=== PATIENT | female | born 1965 | race Caucasian/White ===

== ENCOUNTER 2016-08-19 15:32 | Emergency (ER) | payer MEDICAID, OTHER ==
[~2016-08-19] VITALS: Ht 152.4 cm; Wt 70.0 kg
[~2016-08-19 15:32] MED LIST: ATEN50TA PO; ATOR10TA23 PO; IBUP800T25 PO; LISI10TA2 PO; OMEP20CA9 PO
[2016-08-19 15:53] VITALS: Ht 152.4 cm; Wt 70.0 kg
[2016-08-19] MEDS ORDERED: SOD CHLORIDE 0.9% 1,000 ML IV STA (19:40)
[2016-08-19] MEDS ORDERED: ALBUTEROL 0.5% (NEB) 2.5 MG/0.5 ML AMP INH STA (19:40)
[2016-08-19] MEDS ORDERED: IBUPROFEN 600 MG TAB PO ONE (20:00)
[2016-08-19 20:19] LABS: ADD SCAN DIFF NO
[2016-08-19 20:21] LABS: BASOPHILS % 0.2 % (0.0-2.0); HEMATOCRIT 41.3 % (37.0-47.0); HEMOGLOBIN 14.3 g/dl (12.0-16.0); LYMPHOCYTES # 1.3 10^3/ul (0.8-2.9); LYMPHOCYTES % 28.6 % (15.0-51.0); MEAN CORPUSCULAR HEMOGLOBIN 29.9 pg (29.0-33.0); MEAN CORPUSCULAR HGB CONC 34.6 g/dl (32.0-37.0); MEAN CORPUSCULAR VOLUME 86.4 fl (82.0-101.0); MEAN PLATELET VOLUME 9.6 fl (7.4-10.4); MONOCYTE # 0.6 10^3/ul (0.3-0.9); MONOCYTES % 12.5 % (0.0-11.0); NEUTROPHIL # 2.6 10^3/ul (1.6-7.5); NEUTROPHILS % 58.5 % (39.0-77.0); PLATELET COUNT 184 10^3/UL (140-415); RED BLOOD COUNT 4.78 10^6/ul (4.20-5.40); RED CELL DISTRIBUTION WIDTH 13.8 % (11.5-14.5); WHITE BLOOD COUNT 4.4 10^3/ul (4.8-10.8)
[2016-08-19 20:36] LABS: ALANINE AMINOTRANSFERASE 44 IU/L (13-69); ALBUMIN 4.4 g/dl (3.3-4.9); ALBUMIN/GLOBULIN RATIO 1.12; ALKALINE PHOSPHATASE 174 IU/L (42-121); ANION GAP 18 (8-16); ASPARTATE AMINO TRANSFERASE 41 IU/L (15-46); BILIRUBIN,INDIRECT 0.3 mg/dl (0-1.1); BILIRUBIN,TOTAL 0.3 mg/dl (0.2-1.3); BLOOD UREA NITROGEN 8 mg/dl (7-20); CARBON DIOXIDE 25 mmol/L (21-31); CHLORIDE 104 mmol/L (97-110); CREATININE 0.52 mg/dl (0.44-1.00); GLUCOSE 110 mg/dl (70-220); POTASSIUM 3.5 mmol/L (3.5-5.1); SODIUM 143 mmol/L (135-144); TOTAL PROTEIN 8.3 g/dl (6.1-8.1)
[2016-08-19] MEDS ORDERED: ALBU8.5H3 INH (20:38)
[2016-08-19] MEDS ORDERED: AZIT500T5 PO (20:38)
[2016-08-19] MEDS ORDERED: IBUP-1542 PO (20:38)
--- NOTE | 2016-08-19 20:42 | ERD ---
ER Documentation Chief Complaint Date/Time DATE: 08/19/16 TIME: 20:40 Chief Complaint HTN, COUGH X4 DAYS. DID NOT TAKE HER HTN MEDS TODAY. HPI 50-year-old woman presents with cough, congestion, sore throat, elevated blood pressure 4 days. She denies history of asthma although she states she has had "bronchitis" in the past and has benefited from albuterol pump in the past. She denies calf or leg swelling, no chest pain, no vomiting or diarrhea, no dysuria, no headache or blurry vision. ROS All systems reviewed and are negative except as per history of present illness. Medications Home Meds Active Scripts Ibuprofen* (Ibuprofen*) 600 Mg Tablet, 600 MG PO Q8 for PAIN AND/OR INFLAMMATION , #30 TAB Prov:BARB CHRISTOPHER MD 08/19/16 Azithromycin* (Azithromycin*) 500 Mg Tablet, 500 MG PO DAILY for 5 Days, TAB Prov:BARB CHRISTOPHER MD 08/19/16 Albuterol Sulfate* (Proair HFA*) 8.5 Gm Hfa.aer.ad, 2 PUFF INH Q6H Y for COUGH, #1 INHALER Prov:BARB CHRISTOPHER MD 08/19/16 Omeprazole* (Prilosec*) 20 Mg Capsule.dr, 20 MG PO DAILY for 30 Days, CAP Prov:ALFRED JOSEPH PA-C 01/04/15 Ibuprofen* (Ibuprofen*) 800 Mg Tab, 800 MG PO Q6H Y for PAIN for 30 Days, TAB Prov:ALFRED JOSEPH PA-C 01/04/15 Reported Medications Lisinopril* (Lisinopril*) 10 Mg Tablet, 10 MG PO DAILY 07/24/12 Atorvastatin (Lipitor) 10 Mg Tablet, 10 MG PO HS 07/24/12 Atenolol* (Atenolol*) 50 Mg Tablet, 50 MG PO DAILY 07/24/12 Allergies Allergies: Coded Allergies: No Known Allergy (Unverified , 04/23/14) PMhx/Soc Hypertension, hypercholesterolemia, gastritis, obesity History of Surgery: Yes () Anesthesia Reaction: No Hx Neurological Disorder: No Hx Respiratory Disorders: No Hx Cardiac Disorders: Yes (HTN, high cholesterol) Hx Psychiatric Problems: No Hx Miscellaneous Medical Probl: No Hx Alcohol Use: No Hx Substance Use: No Hx Tobacco Use: No Smoking Status: Never smoker FmHx Family History: No diabetes Physical Exam Vitals Vital Signs Date Time Temp Pulse Resp B/P Pulse Ox O2 Delivery O2 Flow Rate FiO2 08/19/16 19:57 96 20 98 21 08/19/16 19:47 101 24 165/78 99 Room Air 08/19/16 15:53 99.9 107 16 200/93 96 Physical Exam GENERAL: Well-developed, well-nourished, appears dehydrated, febrile HEENT: Moist mucous membranes, pink conjunctiva, no cervical spine tenderness or step-off deformities, no goiter, no jaundice or icterus, extraocular movements intact without pain. No submandibular induration, and no pharyngeal erythema NEURO: Alert and oriented 3, cranial nerves II through XII intact bilaterally, pupils equal round reactive to light, no focal deficits or facial asymmetry, sensation intact distally Strength 5/5 in upper and lower extremities bilaterally CARDIAC: Tachycardic and regular, no murmurs rubs or gallops LUNGS: Clear bilaterally no wheezing crackles or stridor ABDOMEN: Soft nontender, no guarding, no rigidity, no rebound, no psoas sign no obturator sign. Normoactive bowel sounds SKIN: Warm and dry to touch, no abrasions, contusions, or hematomas, no lacerations, no ecchymosis, no target lesions, and without ulcers EXTREMITIES: No clubbing cyanosis or edema, calves are bilaterally symmetrical, no Homans sign, no popliteal cord sign. Distal pulses equal and bilateral PSYCH: Normal affect without agitation or irritability Result Diagram: 08/19/16199908/19/161999 Results 24 hrs Laboratory Tests Test 08/19/16 20:00 White Blood Count 4.410^3/ul Red Blood Count 4.7810^6/ul Hemoglobin 14.3g/dl Hematocrit 41.3% Mean Corpuscular Volume 86.4fl Mean Corpuscular Hemoglobin 29.9pg Mean Corpuscular Hemoglobin Concent 34.6g/dl Red Cell Distribution Width 13.8% Platelet Count 02777^3/UL Mean Platelet Volume 9.6fl Neutrophils % 58.5% Lymphocytes % 28.6% Monocytes % 12.5% Eosinophils % 0.0% Basophils % 0.2% Nucleated Red Blood Cells % 0.0/100WBC Neutrophils # 2.610^3/ul Lymphocytes # 1.310^3/ul Monocytes # 0.610^3/ul Eosinophils # 0.010^3/ul Basophils # 0.010^3/ul Nucleated Red Blood Cells # 0.010^3/ul Sodium Level 143mmol/L Potassium Level 3.5mmol/L Chloride Level 104mmol/L Carbon Dioxide Level 25mmol/L Anion Gap 18 Blood Urea Nitrogen 8mg/dl Creatinine 0.52mg/dl Glucose Level 110mg/dl Calcium Level 9.0mg/dl Total Bilirubin 0.3mg/dl Direct Bilirubin 0.00mg/dl Indirect Bilirubin 0.3mg/dl Aspartate Amino Transf (AST/SGOT) 41IU/L Alanine Aminotransferase (ALT/SGPT) 44IU/L Alkaline Phosphatase 174IU/L Troponin I < 0.012ng/ml Total Protein 8.3g/dl Albumin 4.4g/dl Globulin 3.90g/dl Albumin/Globulin Ratio 1.12 Lipase 57U/L Current Medications Medications (Trade) Dose Ordered Sig/Ofelia Route PRN Reason Start Time Stop Time Status Last Admin Dose Admin Ibuprofen (Motrin) 600 mg ONCE ONCE PO 08/19/16 20:00 08/19/16 20:01 DC 08/19/16 20:10 Albuterol 5 mg 5 mg ONCE STAT INH 08/19/16 19:40 08/19/16 19:49 DC 08/19/16 19:57 Sodium Chloride (NS) 1,000 ml @ 1,000 mls/hr Q1H STAT IV 08/19/16 19:40 08/19/16 20:39 DC 08/19/16 20:10 Clonidine (Catapres) 0.1 mg ONCE ONCE PO 08/19/16 20:00 08/19/16 20:01 DC 08/19/16 20:10 Procedures/MDM IV line was established patient was placed on spanish speaking babysitter rhythm strip revealed a sinus tachycardia at about 110 bpm with upright P and T waves. Patient had a low-grade fever. Blood cultures have been ordered results are pending I will follow-up. One AP view of the chest performed, read by me reveals no acute infiltrates, normal mediastinum, sharp costophrenic and cardiac borders, no air under the diaphragm. Otherwise unremarkable chest x-ray. EKG performed, read by me revealed a sinus tachycardia at 104 bpm, normal axis, narrow QRS complex, no concerning ST elevations or depressions noted. I administered 1 L normal saline intravenously, clonidine 0.1 mg p.o. for hypertension, albuterol 5 mg via nebulizer for cough, and ibuprofen 600 mg p.o. with good effect. CBC was unremarkable, electrolytes normal, liver function tests normal, troponin was negative. Urine specimen was lost by lab, and patient and her family members did not want to wait any longer for repeat testing. Influenza AB swabs were negative. Patient's symptoms improved as did her blood pressure she will be discharged for outpatient management and with my recommendation for follow-up with her PMD. Differential diagnoses considered, included but not limited to acute coronary syndrome, pulmonary embolism, aortic dissection, abdominal aortic aneurysm, sepsis, stroke, meningitis, encephalitis, pneumonia, appendicitis, cholecystitis , bowel obstruction, pyelonephritis, nephrolithiasis, cystitis, as well as metabolic, hematologic, and electrolyte abnormalities. As well as abscess, cellulitis, fractures, and dislocations. Patient feels much better at this time, and vital signs are normal, symptoms have improved. I did give strict instructions to return to the ED if symptoms continue or worsen, patient will otherwise follow-up with primary care physician. Patient understood instructions and agreed to plan. Departure Diagnosis: Primary Impression: Acute bronchitis Bronchitis organism: unspecified organism Qualified Code: J20.9 - Acute bronchitis, unspecified organism Additional Impression: Hypertensive urgency Condition: Good Patient Instructions: Bronchitis With Wheezing (Adult) BARB CHRISTOPHER MD Aug 19, 2016 20:41
[2016-08-19 20:47] LABS: TROPONIN-I < 0.012 ng/ml (0.00-0.12)
--- NOTE | 2016-08-19 21:11 | RADRPT ---
PROCEDURE: XR Chest. CLINICAL INDICATION: Shortness of breath. TECHNIQUE: Single frontal chest x-ray. COMPARISON: 11/22/2013 FINDINGS: Heart is mildly enlarged.. There is no CHF.. Mild bibasilar atelectasis.. There is no pleural effu jadyn. There is no pneumothorax. The osseous structures are unremarkable. IMPRESSION: Cardiomegaly. No CHF. Mild bibasilar atelectasis. RPTAT: [facility] .Travis Wagoner MD, Date Time Electronically viewed and signed by .Travis Wagoner MD, on 08/19/2016 21:10 .K/
[2016-08-19 22:16] VITALS: BP 141/64; PULSE 91; RESP 18
== END 2016-08-19 22:17 | disposition home or self-care (01) ==
LOC: E/R 15:32 → EDUNIT# 15:32 → E/R 22:17
DX: J20.9 Acute bronchitis, unspecified (principal); I16.0 Hypertensive urgency; R40.2142 Coma scale, eyes open, spontaneous, at arrival to emergency department; R40.2252 Coma scale, best verbal response, oriented, at arrival to emergency department; R40.2362 Coma scale, best motor response, obeys commands, at arrival to emergency department; I10 Essential (primary) hypertension
CPT/HCPCS: 36415; 71010; 80053; 83690; 84484; 85025; 87400; 93005; 94664; J7030; Z7502; Z7610

== ENCOUNTER 2018-05-19 12:39 | Emergency (ER) | payer MEDICAID ==
[~2018-05-19] VITALS: Wt 72.3 kg
[~2018-05-19 12:39] MED LIST changes: +ALBU8.5H8 INH; +AZIT500T5 PO; +IBUP-1542 PO; +IBUP-1545 PO; -IBUP800T25 PO
[2018-05-19] MEDS ORDERED: ACET325T33 PO (13:53)
[2018-05-19] MEDS ORDERED: OSEL75CA23 PO (13:53)
[2018-05-19] MEDS ORDERED: ACETAMINOPHEN 325 MG TAB PO ONE (14:00)
[2018-05-19] MEDS ORDERED: ASPI-817 PO (14:07)
[2018-05-19 14:52] VITALS: BP 148/58; PULSE 79; RESP 18
--- NOTE | 2018-05-19 17:16 | ERD ---
ER Documentation Chief Complaint Chief Complaint bib self, cc: fever since last night, body aches x 1 day HPI Patient is a 52-year-old female with hypertension who presents with fever. She describes a headache and feels cold all over. She said that the symptoms started on Saturday. She is taking her blood pressure medications. She has sick contacts at home with similar type symptoms. She did not get her flu shot this year. Upon review of old medical records this is the patient's seventh visit to the ER since 2012. She does not know the name of her primary doctor. ROS All systems reviewed and are negative except as per history of present illness. Medications Home Meds Active Scripts Acetaminophen* (Tylenol*) 325 Mg Tablet, 2 TAB PO Q8 PRN for PAIN AND OR ELEVA PAULA TEMP, #20 TAB Prov:CANDIDO SALMERON MD 05/19/18 Oseltamivir Phosphate* (Tamiflu*) 75 Mg Capsule, 75 MG PO BID for 5 Days, CAP Prov:CANDIDO SALMERON MD 05/19/18 Ibuprofen* (Ibuprofen*) 600 Mg Tablet, 600 MG PO Q8 for PAIN AND/OR INFLAMMATION, #30 TAB Prov:BARB CHRISTOPHER MD 08/19/16 Reported Medications Aspirin* (Aspirin* EC) 81 Mg Tablet., 81 MG PO DAILY, TAB 05/19/18 Atenolol* (Atenolol*) 50 Mg Tablet, 50 MG PO DAILY 07/24/12 Discontinued Reported Medications Lisinopril* (Lisinopril*) 10 Mg Tablet, 10 MG PO DAILY 07/24/12 Atorvastatin (Lipitor) 10 Mg Tablet, 10 MG PO HS 07/24/12 Discontinued Scripts Azithromycin* (Azithromycin*) 500 Mg Tablet, 500 MG PO DAILY for 5 Days, TAB Prov:BARB CHRISTOPHER MD 08/19/16 Albuterol Sulfate* (Proair HFA*) 8.5 Gm Hfa.aer.ad, 2 PUFF INH Q6H PRN for COUGH, #1 INHALER Prov:BARB CHRISTOPHER MD 08/19/16 Omeprazole* (Prilosec*) 20 Mg Capsule., 20 MG PO DAILY for 30 Days, CAP Prov:ALFRED JOSEPH PA-C 01/04/15 Ibuprofen* (Ibuprofen*) 800 Mg Tab, 800 MG PO Q6H PRN for PAIN for 30 Days, TAB Prov:INGRIDPareshALFRED Jiménez PA-C 01/04/15 Allergies Allergies: Coded Allergies: No Known Allergy (Unverified , 05/19/18) PMhx/Soc History of Surgery: Yes () Anesthesia Reaction: No Hx Neurological Disorder: No Hx Respiratory Disorders: No Hx Cardiac Disorders: Yes (HTN, high cholesterol) Hx Psychiatric Problems: No Hx Miscellaneous Medical Probl: No Hx Alcohol Use: No Hx Substance Use: No Hx Tobacco Use: No Smoking Status: Never smoker FmHx Family History: No diabetes Physical Exam Vitals Vital Signs Date Temp Pulse Resp B/P (MAP) Pulse Ox O2 O2 Flow FiO2 Time Delivery Rate 05/19/18 100.6 79 18 148/58 95 Room Air 14:52 (88) 05/19/18 99.1 78 18 138/57 97 Room Air 14:21 (84) 05/19/18 100.6 95 19 167/71 100 12:43 (103) Physical Exam Const: No acute distress Head: Atraumatic Eyes: Normal Conjunctiva ENT: Normal External Ears, Nose and Mouth. Neck: Full range of motion. No meningismus. Resp: Clear to auscultation bilaterally Cardio: Regular rate and rhythm, no murmurs Abd: Soft, non tender, non distended. Normal bowel sounds Skin: No petechiae or rashes Back: No midline or flank tenderness Ext: No cyanosis, or edema Neur: Awake and alert Psych: Normal Mood and Affect Results 24 hrs Current Medications Medications Dose Sig/Ofelia Start Time Status Last (Trade) Ordered Route PRN Stop Time Admin Dose Reason Admin 650 mg ONCE ONCE 05/19/18 DC 05/19/18 Acetaminophen PO 14:00 14:10 (Tylenol 05/19/18 14:01 Tab) Procedures/MDM Patient is a 52-year-old female who presents with a likely viral syndrome. It is flu season and her symptoms would be consistent with flu. She will be treated with Tamiflu. The patient will also be given Tylenol for fever. She can take Tylenol as needed for fever at home. I doubt serious bacterial infection at this time. I believe outpatient management is appropriate but the patient will need close follow-up with her primary doctor within 24-48 hours. She can return sooner for any worsening symptoms. Departure Diagnosis: Primary Impression: Viral syndrome Additional Impression: Fever Fever type: unspecified Qualified Codes: R50.9 - Fever, unspecified Condition: Fair Patient Instructions: Influenza (Adult) Referrals: Your doctor Additional Instructions: Llame al doctor MAANA y luis brigette GUI PARA DENTRO DE 1-2 NIXON.Dgale a la secretaria que nosotros le instruimos hacer esta gui.Avise o llame si poe condicin se empeora antes de la gui. Regresa aqui si peor o no mejor. CANDIDO SALMERON MD May 19, 2018 17:16
== END 2018-05-19 14:59 | disposition home or self-care (01) ==
LOC: E/R 12:39
DX: B34.9 Viral infection, unspecified (principal); I10 Essential (primary) hypertension; Z79.82 Long term (current) use of aspirin
CPT/HCPCS: Z7502; Z7610; 99283